=== PATIENT | male | born 1955 | race Native Hawaiian/Other Pacific Islander ===

== ENCOUNTER 2016-10-13 07:53 | Outpatient (CLI) | payer BC, OTHER ==
[~2016-10-13] VITALS: Ht 170.2 cm; Wt 112.0 kg
== END 2016-10-13 19:45 | disposition home or self-care (01) ==
LOC: NM 07:53
DX: R07.89 Other chest pain (principal)
CPT/HCPCS: A9500; J2785

== ENCOUNTER 2016-11-09 09:41 | Outpatient (CLI) | payer BC, OTHER ==
[2016-11-09 10:20] LABS: PLATELET COUNT 157 K/uL (142-355)
== END 2016-11-09 19:52 | disposition home or self-care (01) ==
LOC: LABW 09:41
PROVIDERS: Specialist
DX: Z01.810 Encounter for preprocedural cardiovascular examination (principal); R07.2 Precordial pain
CPT/HCPCS: 36415; 80053; 85027

== ENCOUNTER 2016-11-16 10:44 | Outpatient (CLI) | payer BC, OTHER ==
[2016-11-16 11:00] LABS: PLATELET COUNT 159 K/uL (142-355)
== END 2016-11-16 20:10 | disposition home or self-care (01) ==
LOC: LABW 10:44
PROVIDERS: Specialist
DX: Z01.810 Encounter for preprocedural cardiovascular examination (principal); R93.1 Abnormal findings on diagnostic imaging of heart and coronary circulation
CPT/HCPCS: 36415; 80053; 85027

== ENCOUNTER 2016-12-31 11:22 | Outpatient (CLI) | payer BC, OTHER ==
[2016-12-31 11:43] LABS: PLATELET COUNT 209 K/uL (142-355)
[2016-12-31 11:58] LABS: POTASSIUM 3.6 mmol/L (3.6-5.2)
== END 2016-12-31 21:04 | disposition home or self-care (01) ==
LOC: LABW 11:22 → US 11:30 → LABW 21:04
PROVIDERS: Nurse Practitioner Family
DX: E11.9 Type 2 diabetes mellitus without complications (principal); R10.9 Unspecified abdominal pain; R93.2 Abnormal findings on diagnostic imaging of liver and biliary tract; K76.89 Other specified diseases of liver; I10 Essential (primary) hypertension; N19 Unspecified kidney failure; E78.5 Hyperlipidemia, unspecified; K21.9 Gastro-esophageal reflux disease without esophagitis
CPT/HCPCS: 36415; 80053; 80074; 85027

== ENCOUNTER 2017-02-04 08:18 | Outpatient (CLI) | payer BC, OTHER | END 2017-02-04 19:04 | disposition home or self-care (01) | LOC: NM 08:18 | DX: R10.84 Generalized abdominal pain (principal); R11.0 Nausea | CPT/HCPCS: A9541 ==

== ENCOUNTER 2017-04-02 09:32 | Outpatient (CLI) | payer BC, OTHER | END 2017-04-02 10:40 | disposition home or self-care (01) | LOC: LABW 09:32 | DX: R94.5 Abnormal results of liver function studies (principal) | CPT/HCPCS: 36415; 80076 ==

== ENCOUNTER 2017-06-28 09:40 | Outpatient (CLI) | payer BC, OTHER | END 2017-06-28 10:40 | disposition home or self-care (01) | LOC: RAD 09:40 | DX: R06.02 Shortness of breath (principal); R05 Cough; R06.2 Wheezing ==

== ENCOUNTER 2017-07-15 10:00 | Outpatient (CLI) | payer BC, OTHER | END 2017-07-15 19:23 | disposition home or self-care (01) | LOC: RAD 10:00 | DX: R05 Cough (principal) ==

== ENCOUNTER 2018-06-30 19:33 | Emergency (ER) | payer BC, OTHER ==
[~2018-06-30] VITALS: Ht 167.6 cm; Wt 105.7 kg
[2018-06-30 20:03] VITALS: BP 140/95
[2018-06-30 21:08] LABS: PLATELET COUNT 223 K/uL (142-355)
[2018-06-30 21:14] LABS: POTASSIUM 3.4 mmol/L (3.6-5.2)
== END 2018-06-30 22:00 | disposition home or self-care (01) ==
LOC: ED 19:33
DX: S92.912A Unspecified fracture of left toe(s), initial encounter for closed fracture (principal); X58.XXXA Exposure to other specified factors, initial encounter; Y93.89 Activity, other specified; Y92.89 Other specified places as the place of occurrence of the external cause
CPT/HCPCS: 80053; 81000; 84550; 85027; 99283

== ENCOUNTER 2020-01-30 17:27 | Emergency (ER) | payer BC, OTHER ==
[~2020-01-30] VITALS: Ht 167.6 cm; Wt 103.4 kg
[2020-01-30 17:35] VITALS: TEMP 97.2
[2020-01-30 18:57] VITALS: BP 152/60
== END 2020-01-30 19:00 | disposition home or self-care (01) ==
LOC: ED 17:27
PROC: 0HQGXZZ Repair Left Hand Skin, External Approach (ICD-10-PCS; principal; 2020-01-30)
DX: S61.412A Laceration without foreign body of left hand, initial encounter (principal); W26.0XXA Contact with knife, initial encounter; Y92.89 Other specified places as the place of occurrence of the external cause
CPT/HCPCS: 90471; 90715; 99283; J7040

== ENCOUNTER 2020-04-29 10:18 | Outpatient (CLI) | payer BC, OTHER | END 2020-04-29 19:28 | disposition home or self-care (01) | LOC: RAD 10:18 | DX: R79.81 Abnormal blood-gas level (principal) ==

== ENCOUNTER 2020-08-15 11:46 | Outpatient (CLI) | payer BC, OTHER | END 2020-08-15 20:23 | disposition home or self-care (01) | LOC: RAD 11:46 | DX: M54.2 Cervicalgia (principal); M54.6 Pain in thoracic spine ==

== ENCOUNTER 2020-10-01 10:27 | Outpatient (CLI) | payer BC, OTHER | END 2020-10-01 19:12 | disposition home or self-care (01) | LOC: RAD 10:27 | PROVIDERS: ATTEND Physician Assistant Medical | DX: M54.2 Cervicalgia (principal); M54.6 Pain in thoracic spine ==

== ENCOUNTER 2021-09-29 10:55 | Outpatient (CLI) | payer BC, OTHER | END 2021-09-29 19:02 | disposition home or self-care (01) | LOC: US 10:55 | PROVIDERS: ATTEND Nurse Practitioner Family | DX: N19 Unspecified kidney failure (principal) ==

== ENCOUNTER 2022-01-23 09:53 | Outpatient (CLI) | payer BC, OTHER | END 2022-01-23 20:58 | disposition home or self-care (01) | LOC: RAD 09:53 | PROVIDERS: ATTEND Nurse Practitioner Family | DX: M25.532 Pain in left wrist (principal) ==

== ENCOUNTER 2022-03-12 09:02 | Outpatient (CLI) | payer BC, OTHER | END 2022-03-12 18:55 | disposition home or self-care (01) | LOC: RAD 09:02 | PROVIDERS: ATTEND Nurse Practitioner Family | DX: E55.9 Vitamin D deficiency, unspecified (principal); E56.8 Deficiency of other vitamins; M06.4 Inflammatory polyarthropathy; R76.0 Raised antibody titer; Z68.35 Body mass index [BMI] 35.0-35.9, adult ==

== ENCOUNTER 2022-07-01 09:43 | Outpatient (CLI) | payer BC, OTHER | END 2022-07-01 19:19 | disposition home or self-care (01) | LOC: CT 09:43 | PROVIDERS: ATTEND Nurse Practitioner Family | DX: E83.52 Hypercalcemia (principal); Z12.9 Encounter for screening for malignant neoplasm, site unspecified; R97.8 Other abnormal tumor markers; Z80.1 Family history of malignant neoplasm of trachea, bronchus and lung; N19 Unspecified kidney failure; I10 Essential (primary) hypertension; Z80.0 Family history of malignant neoplasm of digestive organs | CPT/HCPCS: 36415; 82565; 84520; Q9963 ==

== ENCOUNTER 2022-09-20 07:29 | Emergency (ER) | payer BC, OTHER ==
[~2022-09-20] VITALS: Ht 167.6 cm; Wt 104.3 kg
[2022-09-20 07:35] VITALS: BP 128/79; TEMP 98.8
== END 2022-09-20 08:50 | disposition home or self-care (01) ==
LOC: ED 07:29
DX: S92.351A Displaced fracture of fifth metatarsal bone, right foot, initial encounter for closed fracture (principal); W10.8XXA Fall (on) (from) other stairs and steps, initial encounter; Y92.89 Other specified places as the place of occurrence of the external cause
CPT/HCPCS: 99282

== ENCOUNTER 2023-05-31 11:51 | Outpatient (CLI) | payer BC, OTHER | END 2023-05-31 20:23 | disposition home or self-care (01) | LOC: RAD 11:51 | PROVIDERS: ATTEND Nurse Practitioner Family | DX: I10 Essential (primary) hypertension (principal); Z86.79 Personal history of other diseases of the circulatory system ==